=== PATIENT | female | born 1930 | race Caucasian/White ===

== ENCOUNTER 2017-04-15 11:33 | Emergency (ER) | payer MEDICARE, OTHER ==
[~2017-04-15] VITALS: Ht 154.9 cm; Wt 61.0 kg
[~2017-04-15 11:33] MED LIST: ASPI-611 PO; CARV-50 PO; LACT1CAP65 PO; LEVO50TA PO; LIPITOR PO; LOSA50TA3 PO; METF500T PO; RANO500T3 PO; TAMO20TA4 PO
[2017-04-15 11:38] VITALS: BP 110/53
[2017-04-15] MEDS ORDERED: AZIT250T PO (13:38)
[2017-04-15] MEDS ORDERED: PRED20TA PO (13:38)
== END 2017-04-15 14:05 | disposition home or self-care (01) ==
LOC: ER 11:34
DX: J20.9 Acute bronchitis, unspecified (principal); J06.9 Acute upper respiratory infection, unspecified; I10 Essential (primary) hypertension; K21.9 Gastro-esophageal reflux disease without esophagitis; E11.9 Type 2 diabetes mellitus without complications; Z79.82 Long term (current) use of aspirin; Z79.84 Long term (current) use of oral hypoglycemic drugs
CPT/HCPCS: 99283

== ENCOUNTER 2018-04-23 10:25 | Inpatient (IN) | payer MEDICARE, MEDICAID | END 2018-04-24 14:53 | disposition home or self-care (01) | LOC: ER 10:25 → ED HOLD 13:49 → ORTHO 4S 20:55 ==